=== PATIENT | male | born 1960 | race Caucasian/White ===

== ENCOUNTER 2025-02-16 08:09 | Day surgery (SDC) | payer OTHER ==
[~2025-02-16 08:09] MED LIST: Sodium Chloride 0.9% 10 ML Syringe FLUSH PRN; Sodium Chloride 0.9% 2.5 ML Syringe FLUSH PRN
[2025-02-16] MEDS: Lactated Ringers 1,000 ML IV SCH (09:03)
[2025-02-16] MEDS ORDERED: propofoL 500 MG/50 ML 50 ML ONE (09:07)
[2025-02-16 12:31] VITALS: BP 118/70; PULSE 48
== END 2025-02-16 10:59 | disposition home or self-care (01) ==
LOC: MW.SDS 08:09
PROVIDERS: ATTEND Surgery
DX: Z12.11 Encounter for screening for malignant neoplasm of colon (principal); I10 Essential (primary) hypertension; Z79.899 Other long term (current) drug therapy
CPT/HCPCS: 45378; J2003; J2704; J7120; 00812